=== PATIENT | female | born 1995 | race African-American/Black ===

== ENCOUNTER 2016-08-21 20:01 | Emergency (ER) | payer SELFPAY ==
[~2016-08-21] VITALS: Ht 165.1 cm; Wt 127.0 kg
[~2016-08-21 20:01] MED LIST: NORG1TAB38 PO
[2016-08-21 20:14] VITALS: BP 122/56
[2016-08-21 21:01] LABS: OBC FLU VALID
[2016-08-21] MEDS ORDERED: OSEL75CA PO (21:22)
--- NOTE | 2016-08-21 21:23 | PHYS DOC ---
Past Medical History Past Medical History: Anxiety, Asthma, Bipolar, Schizophrenia, Other Additional Past Medical Histor: panic attacks Past Surgical History: No Surgical History Alcohol Use: Occasionally Drug Use: None Adult General Chief Complaint Chief Complaint: FLU SYMPTOM HPI HPI Patient is a 21 year old female with history of anxiety asthma and schizophrenia who presents today with sore throat body aches subjective fever since yesterday. Patient denies any coughing. Review of Systems Review of Systems Constitutional: Subjective fevers and body aches Eyes: Denies change in visual acuity, redness, or eye pain [] HENT: sore throat [] Respiratory: See history of present illness Cardiovascular: No additional information not addressed in HPI [] GI: Denies abdominal pain, nausea, vomiting, bloody stools or diarrhea [] : Denies dysuria or hematuria [] Musculoskeletal: Denies back pain or joint pain [] Integument: Denies rash or skin lesions [] Neurologic: Denies headache, focal weakness or sensory changes [] Endocrine: Denies polyuria or polydipsia [] Allergies Allergies Allergies Coded Allergies Type Severity Reaction Last Updated Verified coconut oil Allergy Severe hives 02/01/14 Yes Physical Exam Physical Exam Constitutional: Well developed, well nourished, no acute distress, non-toxic appearance. [] HENT: Normocephalic, atraumatic, bilateral external ears normal, oropharynx moist, no oral exudates, nose normal. [] Eyes: PERRLA, EOMI, conjunctiva normal, no discharge. [] Neck: Normal range of motion, no tenderness, supple, no stridor. [] Cardiovascular:Heart rate regular rhythm, no murmur [] Lungs & Thorax: Bilateral breath sounds clear to auscultation [] Abdomen: Bowel sounds normal, soft, no tenderness, no masses, no pulsatile masses. [] Skin: Warm, dry, no erythema, no rash. [] Back: No tenderness, no CVA tenderness. [] Extremities: No tenderness, no cyanosis, no clubbing, ROM intact, no edema. [] Neurologic: Alert and oriented X 3, normal motor function, normal sensory function, no focal deficits noted. [] Psychologic: Affect normal, judgement normal, mood normal. [] Current Patient Data Vital Signs Vital Signs Date Time Temp Pulse Resp B/P Pulse Ox O2 Delivery O2 Flow Rate FiO2 08/21/16 20:14 100.4 91 22 100 Room Air 100.4 Lab Values Laboratory Tests Test 08/21/16 20:26 Influenza Type A Antigen Positive (NEGATIVE) Influenza Type B Antigen Negative (NEGATIVE) EKG EKG [] Radiology/Procedures Radiology/Procedures [] Course & Med Decision Making Course & Med Decision Making Pertinent Labs and Imaging studies reviewed. (See chart for details) Patient is in the ED with symptoms of an upper respiratory infection including sore throat and bodyaches subjective fever, negative rapid strep. Positive influenza A, discharged with Tamiflu. Negative influenza B. Tylenol /Motrin recommended for febrile pain. Follow-up with primary care doctor in one week. Provided return precautions and discharged in stable condition. Dragon Disclaimer Dragon Disclaimer This electronic medical record was generated, in whole or in part, using a voice recognition dictation system. Departure Departure Impression: Primary Impression: Upper respiratory infection Additional Impressions: Viral pharyngitis Influenza B Disposition: 01 HOME, SELF-CARE Condition: STABLE Referrals: NO PCP (PCP) Follow-up with your doctor in 1-2 weeks Patient Instructions: Upper Respiratory Infection, Adult Additional Instructions: You have influenza B. This is a virus. Take Tylenol every 4 hours and Motrin every 6 hours, we discharged you home with Tamiflu. Use it as prescribed. Follow -up with your own doctor in 1-2 weeks. Scripts Oseltamivir Phosphate (Tamiflu)75 Mg Capsule1 Cap PO BID #10 CAP Prov:ALISON LAMAS APRN 08/21/16 Problem Qualifiers Primary Impression: Upper respiratory infection URI type: unspecified URI Qualified Code: J06.9 - Acute upper respiratory infection, unspecified ADAMSALISON MARIA Aug 21, 2016 21:23
[2016-08-22 11:22] LABS: NEGATIVE OBC STREP NEG; POSITIVE OBC STREP POS
== END 2016-08-21 21:26 | disposition home or self-care (01) ==
LOC: ER 20:01
DX: J09.X2 Influenza due to identified novel influenza A virus with other respiratory manifestations (principal); J06.9 Acute upper respiratory infection, unspecified; J45.909 Unspecified asthma, uncomplicated; F31.9 Bipolar disorder, unspecified; F20.9 Schizophrenia, unspecified; Z91.048 Other nonmedicinal substance allergy status
CPT/HCPCS: 81025; 87070; 87804; 87880; 99284

== ENCOUNTER 2016-08-25 00:50 | Emergency (ER) | payer SELFPAY ==
[~2016-08-25] VITALS: Ht 165.1 cm; Wt 137.9 kg
[~2016-08-25 00:50] MED LIST changes: +OSEL75CA PO
[2016-08-25] MEDS ORDERED: IBUP100O7 PO (01:27)
--- NOTE | 2016-08-25 01:27 | PHYS DOC ---
Past Medical History Past Medical History: Anxiety, Asthma, Bipolar, Schizophrenia, Other Additional Past Medical Histor: panic attacks Past Surgical History: No Surgical History Alcohol Use: Occasionally Drug Use: None Adult General Chief Complaint Chief Complaint: DENTAL PROBLEM HPI HPI This is a 21-year-old female who states she was eating a chili dog and while eating it she states something sharp lodged in the roof of her mouth. She states she had to pull a piece of plastic out of the roof of her mouth. There was some mild bleeding that resolved. She now has some mild pain in the upper part of her mouth. She denies any shortness of breath. She denies any active bleeding. She is speaking in complete sentences and in no acute distress. Review of Systems Review of Systems Constitutional: Denies fever or chills [] Eyes: Denies change in visual acuity, redness, or eye pain [] HENT: Denies nasal congestion or sore throat [] Respiratory: Denies cough or shortness of breath [] Cardiovascular: No additional information not addressed in HPI [] GI: Denies abdominal pain, nausea, vomiting, bloody stools or diarrhea [] : Denies dysuria or hematuria [] Musculoskeletal: Denies back pain or joint pain [] Integument: Denies rash or skin lesions [] Neurologic: Denies headache, focal weakness or sensory changes [] Endocrine: Denies polyuria or polydipsia [] Current Medications Current Medications Current Medications Medications (Trade) Dose Ordered Sig/[facility] Start Time Stop Time Status Last Admin Dose Admin Ibuprofen (Motrin) 600 mg 1X ONCE 08/25/16 01:30 08/25/16 01:31 DC 08/25/16 01:31 600 MG Allergies Allergies Allergies Coded Allergies Type Severity Reaction Last Updated Verified coconut oil Allergy Severe hives 02/01/14 Yes Physical Exam Physical Exam Constitutional: Well developed, well nourished, no acute distress, non-toxic appearance. [] HENT: Normocephalic, atraumatic, bilateral external ears normal, oropharynx demonstrates a small abrasion but no other acute findings, there is no active bleeding seen, no oral exudates, nose normal. [] Eyes: PERRLA, EOMI, conjunctiva normal, no discharge. [] Neck: Normal range of motion, no tenderness, supple, no stridor. [] Cardiovascular:Heart rate regular rhythm, no murmur [] Lungs & Thorax: Bilateral breath sounds clear to auscultation [] Abdomen: Bowel sounds normal, soft, no tenderness, no masses, no pulsatile masses. [] Skin: Warm, dry, no erythema, no rash. [] Back: No tenderness, no CVA tenderness. [] Extremities: No tenderness, no cyanosis, no clubbing, ROM intact, no edema. [] Neurologic: Alert and oriented X 3, normal motor function, normal sensory function, no focal deficits noted. [] Psychologic: Affect normal, judgement normal, mood normal. [] Current Patient Data Vital Signs Vital Signs Date Time Temp Pulse Resp B/P Pulse Ox O2 Delivery O2 Flow Rate FiO2 08/25/16 01:04 98.4 84 20 99 Room Air 98.4 EKG EKG [] Radiology/Procedures Radiology/Procedures [] Course & Med Decision Making Course & Med Decision Making Pertinent Labs and Imaging studies reviewed. (See chart for details) This 20-year-old female who had a bridge into the upper roof of her mouth after she states a piece of plastic lodged itself briefly there has only what appears to be a superficial abrasion to the roof of her mouth. A dose of liquid Motrin was administered and she was told to have a soft liquid diet for the next several days and to follow closely with her primary care doctor. Prescription for liquid Motrin was also given. Dragon Disclaimer Dragon Disclaimer This electronic medical record was generated, in whole or in part, using a voice recognition dictation system. Departure Departure Impression: Primary Impression: Abrasion of oral cavity Disposition: HOME, SELF-CARE Admitting Physician: Other Condition: STABLE Referrals: UNKNOWN PCP NAME (PCP) Patient Instructions: Abrasion, [id number] Additional Instructions: Please follow up with your primary doctor for your abrasion to your mouth. Take liquid motrin for you pain and use a soft liquid diet for the next 2 days. Return to the ER if you develop any worsening of your symptoms. Scripts Ibuprofen 100 Mg/5 Ml Oral.[id number] Mg PO Q6HRS PRN PAIN 5 Days Prov:MARIZA KEYES DO 08/25/16 MARIZA KEYES DO Aug 25, 2016 01:27
[2016-08-25] MEDS ORDERED: IBUPROFEN 100 MG/5 ML ORAL.SUSP. PO ONE (01:30)
== END 2016-08-25 01:35 | disposition home or self-care (01) ==
LOC: ER 00:50
DX: S00.512A Abrasion of oral cavity, initial encounter (principal); F41.9 Anxiety disorder, unspecified; F20.9 Schizophrenia, unspecified; J45.909 Unspecified asthma, uncomplicated; F31.9 Bipolar disorder, unspecified; Z91.018 Allergy to other foods; W45.8XXA Other foreign body or object entering through skin, initial encounter; Y93.89 Activity, other specified; Y92.89 Other specified places as the place of occurrence of the external cause; Y99.8 Other external cause status
CPT/HCPCS: 99282

== ENCOUNTER 2017-01-24 01:38 | Emergency (ER) | payer MEDICARE ==
[~2017-01-24] VITALS: Ht 167.6 cm; Wt 137.9 kg
[~2017-01-24 01:38] MED LIST changes: +IBUP100O24 PO
[2017-01-24 01:44] VITALS: BP 138/88
[2017-01-24] MEDS ORDERED: AZIT250T PO (03:21)
[2017-01-24] MEDS ORDERED: CYCL10TA2 PO (03:21)
[2017-01-24] MEDS ORDERED: TRAM-48 PO (03:21)
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
== END 2017-01-24 03:35 | disposition home or self-care (01) ==
LOC: ER 01:38
DX: J06.9 Acute upper respiratory infection, unspecified (principal); J45.909 Unspecified asthma, uncomplicated; F20.9 Schizophrenia, unspecified; F31.9 Bipolar disorder, unspecified; E66.2 Morbid (severe) obesity with alveolar hypoventilation; Z68.42 Body mass index [BMI] 45.0-49.9, adult; Z88.8 Allergy status to other drugs, medicaments and biological substances
CPT/HCPCS: 99283

== ENCOUNTER 2017-03-29 09:39 | Emergency (ER) | payer SELFPAY ==
[~2017-03-29] VITALS: Ht 167.6 cm; Wt 127.0 kg
[~2017-03-29 09:39] MED LIST changes: +AZIT250T PO; +CYCL10TA2 PO; +TRAM-48 PO
[2017-03-29 10:30] LABS: BILIRUBIN,URINE NEGATIVE (NEG); GLUCOSE,URINE NEGATIVE (NEG); NEGATIVE OBC STREP NEG; NITRITE,URINE NEGATIVE (NEG); PH,URINE 6.5; POSITIVE OBC STREP POS; PROTEIN,URINE NEGATIVE (NEG-TRACE); UROBILINOGEN,URINE 0.2 mg/dL (0.2 mg/dL)
--- NOTE | 2017-03-29 10:34 | PHYS DOC ---
Past Medical History Past Medical History: Anxiety, Asthma, Bipolar, Schizophrenia, Other Additional Past Medical Histor: panic attacks, obesity Past Surgical History: No Surgical History Alcohol Use: Occasionally Drug Use: None Adult General Chief Complaint Chief Complaint: ABDOMINAL PAIN HPI HPI Patient is a 22 year old female with history of schizophrenia, bipolar, who presents today complaining of a sore throat that began yesterday. Patient is also complaining of a generalized mild abdominal pain intermittently since yesterday and none in the ED during exam. She states she vomited twice yesterday but has not vomited today. Patient states she does not think she is though she has not had a menstrual cycle for 6 months. Patient denies any fever. Denies any hematemesis. Denies any melena. Review of Systems Review of Systems Constitutional: Denies fever or chills [] Eyes: Denies change in visual acuity, redness, or eye pain [] HENT:sore throat. Denies nasal congestion Respiratory: Denies cough or shortness of breath [] Cardiovascular: No additional information not addressed in HPI [] GI: generalized abdominal pain, nausea, vomiting, denies bloody stools or diarrhea [] : Denies dysuria or hematuria [] Musculoskeletal: Denies back pain or joint pain [] Integument: Denies rash or skin lesions [] Neurologic: Denies headache, focal weakness or sensory changes [] Endocrine: Denies polyuria or polydipsia [] Allergies Allergies Allergies Coded Allergies Type Severity Reaction Last Updated Verified coconut oil Allergy Severe hives 02/01/14 Yes Physical Exam Physical Exam Constitutional: Well developed, well nourished, no acute distress, non-toxic appearance. [] HENT: Normocephalic, atraumatic, bilateral external ears normal, oropharynx moist, no oral exudates, nose normal. [] Eyes: PERRLA, EOMI, conjunctiva normal, no discharge. [] Neck: Normal range of motion, no tenderness, supple, no stridor. [] Cardiovascular:Heart rate regular rhythm, no murmur [] Lungs & Thorax: Bilateral breath sounds clear to auscultation [] Abdomen: Bowel sounds normal, soft, no tenderness, no masses, no pulsatile masses. [] Skin: Warm, dry, no erythema, no rash. [] Back: No tenderness, no CVA tenderness. [] Extremities: No tenderness, no cyanosis, no clubbing, ROM intact, no edema. [] Neurologic: Alert and oriented X 3, normal motor function, normal sensory function, no focal deficits noted. [] Psychologic: Affect normal, judgement normal, mood normal. [] Current Patient Data Vital Signs Vital Signs Date Time Temp Pulse Resp B/P (MAP) Pulse Ox O2 Delivery O2 Flow Rate FiO2 03/29/17 09:53 98.2 88 18 130/75 (93) 98 Room Air 98.2 Lab Values Laboratory Tests Test 03/29/17 10:13 03/29/17 10:15 POC Urine HCG, Qualitative Hcg negative (Negative) Urine Collection Type Unknown Urine Color Yellow Urine Clarity Clear Urine pH 6.5 Urine Specific Greer 1.015 Urine Protein Negative mg/dL (NEG-TRACE) Urine Glucose (UA) Negative mg/dL (NEG) Urine Ketones (Stick) Negative mg/dL (NEG) Urine Blood Small (NEG) Urine Nitrite Negative (NEG) Urine Bilirubin Negative (NEG) Urine Urobilinogen Dipstick 0.2 mg/dL (0.2 mg/dL) Urine Leukocyte Esterase Negative (NEG) Urine RBC Occ /HPF (0-2) Urine WBC 1-4 /HPF (0-4) Urine Squamous Epithelial Cells Mod /LPF Urine Bacteria Few /HPF (0-FEW) Urine Mucus Slight /LPF Group A Streptococcus Rapid Negative (NEGATIVE) EKG EKG [] Radiology/Procedures Radiology/Procedures [] Course & Med Decision Making Course & Med Decision Making Pertinent Labs and Imaging studies reviewed. (See chart for details) This is a 22-year-old female patient presenting to the ED today with generalized abdominal pain that occurred yesterday intermittently. Patient also had 2 episodes of vomiting yesterday but none today. She is also complaining of a sore throat. Negative urine hCG. Urine analysis is negative for infection, negative rapid strep. Symptoms are likely viral. Discharged promethazine and ibuprofen. Tylenol / Motrin for pain or fever. Follow-up with primary care doctor in 1-2 weeks. Dragon Disclaimer Dragon Disclaimer This electronic medical record was generated, in whole or in part, using a voice recognition dictation system. Departure Departure Impression: Primary Impression: Vomiting Additional Impressions: Viral pharyngitis Abdominal pain Disposition: HOME, SELF-CARE Condition: STABLE Referrals: NO PCP (PCP) follow up with the health department for control as soon as you can Patient Instructions: Abdominal Migraine, Nausea and Vomiting, [id number], Viral and Bacterial Pharyngitis Additional Instructions: You were seen with symptoms consistent of a viral illness. Use saltwater gargles for the sore throat. Take ibuprofen as needed for pain. Take the promethazine as needed for nausea vomiting. Scripts Ibuprofen (IBUPROFEN) 800 Mg Tablet 800 MG PO PRN Q6HRS Y for INFLAMMATION, #30 TAB Prov: ALISON LAMAS APRN 03/29/17 Promethazine Hcl (PROMETHAZINE HCL) 25 Mg Tablet 1 TAB PO PRN Q6HRS, #20 TAB Prov: ALISON LAMAS APRN 03/29/17 Problem Qualifiers Primary Impression: Vomiting Vomiting type: unspecified Vomiting Intractability: non-intractable Nausea presence: without nausea Qualified Codes: R11.11 - Vomiting without nausea Additional Impressions: Abdominal pain Abdominal location: generalized Qualified Codes: R10.84 - Generalized abdominal pain ALISON LAMAS APRN Mar 29, 2017 10:34
[2017-03-29 10:40] LABS: SQUAMOUS EPITHELIAL CELL,UR MOD /LPF
[2017-03-29 10:41] LABS: BACTERIA,URINE FEW /HPF (0-FEW); RBC,URINE OCC /HPF (0-2)
[2017-03-29 11:05] VITALS: BP 129/70
[2017-03-29] MEDS ORDERED: IBUP-1060 PO (11:05)
[2017-03-29] MEDS ORDERED: PROM25TA10 PO (11:05)
== END 2017-03-29 11:12 | disposition home or self-care (01) ==
LOC: ER 09:39
DX: R11.2 Nausea with vomiting, unspecified (principal); J02.8 Acute pharyngitis due to other specified organisms; B97.89 Other viral agents as the cause of diseases classified elsewhere; R10.84 Generalized abdominal pain; J45.909 Unspecified asthma, uncomplicated; F20.9 Schizophrenia, unspecified; F41.0 Panic disorder [episodic paroxysmal anxiety]; F31.9 Bipolar disorder, unspecified; E66.9 Obesity, unspecified; Z68.42 Body mass index [BMI] 45.0-49.9, adult; Z91.048 Other nonmedicinal substance allergy status
CPT/HCPCS: 81001; 81025; 87070; 87880; 99284

== ENCOUNTER 2017-09-19 13:29 | Emergency (ER) | payer MEDICARE ==
[2017-09-19 14:10] LABS: URINE HCG POC HCG NEGATIVE (Negative)
[2017-09-19 14:41] LABS: BILIRUBIN,URINE NEGATIVE (NEG); CLARITY,URINE CLEAR; COLOR,URINE YELLOW; GLUCOSE,URINE NEGATIVE (NEG); NITRITE,URINE NEGATIVE (NEG); PH,URINE 7.5; PROTEIN,URINE NEGATIVE (NEG-TRACE); UROBILINOGEN,URINE 0.2 mg/dL (0.2 mg/dL)
[2017-09-19 14:57] LABS: BACTERIA,URINE 0 /HPF (0-FEW); RBC,URINE 0 /HPF (0-2); SQUAMOUS EPITHELIAL CELL,UR OCC /LPF; WBC,URINE 0 /HPF (0-4)
== END 2017-09-19 15:42 | disposition home or self-care (01) ==
LOC: ER 13:29
DX: M54.5 Low back pain (principal); F20.9 Schizophrenia, unspecified; F31.9 Bipolar disorder, unspecified; Z88.8 Allergy status to other drugs, medicaments and biological substances; V49.9XXA Car occupant (driver) (passenger) injured in unspecified traffic accident, initial encounter; Y93.89 Activity, other specified; Y99.8 Other external cause status; Y92.488 Other paved roadways as the place of occurrence of the external cause
CPT/HCPCS: 72100; 81001; 81025; 99285-25

== ENCOUNTER 2018-06-18 13:33 | Emergency (ER) | payer MEDICARE ==
[~2018-06-18] VITALS: Ht 165.1 cm; Wt 104.8 kg
[~2018-06-18 13:33] MED LIST changes: +CYCL5TAB PO; +IBUP-1060 PO; -IBUP100O24 PO; +IBUP100O25 PO; +PROM25TA10 PO
[2018-06-18 14:45] VITALS: BP 142/85
--- NOTE | 2018-06-18 15:31 | PHYS DOC ---
Past Medical History Past Medical History: Anxiety, Asthma, Bipolar, Schizophrenia, Other Additional Past Medical Histor: panic attacks, obesity Past Surgical History: No Surgical History Alcohol Use: Occasionally Drug Use: None Adult General Chief Complaint Chief Complaint: EARACHE/EAR PAIN HPI HPI Patient is a 23 female that complains of a clogged right ear. The patient states that she feels like she is not hearing out of that ear well. She has had some intermittent bouts of pain in the ear as well. She denies fever, runny nose or sore throat. Review of Systems Review of Systems Constitutional: Denies fever or chills [] Eyes: Denies change in visual acuity, redness, or eye pain [] HENT: See history of present illness Respiratory: Denies cough or shortness of breath [] Cardiovascular: No additional information not addressed in HPI [] Neurologic: Denies headache, focal weakness or sensory changes [] Endocrine: Denies polyuria or polydipsia [] All other systems were reviewed and found to be within normal limits, except as documented in this note. Allergies Allergies Allergies Coded Allergies Type Severity Reaction Last Updated Verified coconut oil Allergy Severe hives 02/01/14 Yes Physical Exam Physical Exam Constitutional: Well developed, well nourished, no acute distress, non-toxic appearance. [] HEENT: The right ear canal is completely occluded with cerumen, the left canal and tympanic membrane are normal Cardiovascular:Heart rate regular rhythm, no murmur [] Lungs & Thorax: Bilateral breath sounds clear to auscultation [] Skin: Warm, dry, no erythema, no rash. [] Back: No tenderness, no CVA tenderness. [] Extremities: No tenderness, no cyanosis, no clubbing, ROM intact, no edema. [] Neurologic: Alert and oriented X 3, normal motor function, normal sensory function, no focal deficits noted. [] Psychologic: Affect normal, judgement normal, mood normal. [] Current Patient Data Vital Signs Vital Signs Date Time Temp Pulse Resp B/P (MAP) Pulse Ox O2 Delivery O2 Flow Rate FiO2 06/18/18 14:45 98.0 85 16 142/85 (104) 100 Room Air 98.0 EKG EKG [] Radiology/Procedures Radiology/Procedures [] Course & Med Decision Making Course & Med Decision Making Pertinent Labs and Imaging studies reviewed. (See chart for details) Cerumen was not able to be removed via flushing. A curette was used to successfully remove the plug of cerumen. The tympanic membrane was normal post- cerumen removal. The patient states that she is pain free and can hear perfectly. Staff Physician Addendum: I was working in the ER during the course of this patient's visit. I was available for consultation as needed, but I was not directly involved in the care of this patient. Dragon Disclaimer Dragon Disclaimer This electronic medical record was generated, in whole or in part, using a voice recognition dictation system. Departure Departure Impression: Primary Impression: Cerumen impaction Disposition: 01 HOME, SELF-CARE Condition: STABLE Referrals: UNKNOWN PCP NAME (PCP) Patient Instructions: Cerumen Impaction Additional Instructions: Follow-up with your primary care provider as needed. If you develop ear pain return to the emergency department. MELISSA DASILVA APRN Jun 18, 2018 15:31 MELINA DENISE MD Jun 19, 2018 06:46
== END 2018-06-18 15:55 | disposition home or self-care (01) ==
LOC: ER 13:33
DX: H61.21 Impacted cerumen, right ear (principal); J45.909 Unspecified asthma, uncomplicated; Z91.048 Other nonmedicinal substance allergy status
CPT/HCPCS: 69210; 99284

== ENCOUNTER 2018-06-29 14:13 | Emergency (ER) | payer MEDICARE ==
[~2018-06-29] VITALS: Ht 167.6 cm; Wt 109.8 kg
[2018-06-29 14:34] VITALS: BP 140/64
--- NOTE | 2018-06-29 15:12 | PHYS DOC ---
Past Medical History Past Medical History: Anxiety, Asthma, Bipolar, Schizophrenia, Other Additional Past Medical Histor: panic attacks, obesity Past Surgical History: No Surgical History Alcohol Use: Occasionally Drug Use: None Adult General Chief Complaint Chief Complaint: SORE THROAT HPI HPI Patient is a 23 year old female with history of anxiety, bipolar, schizophrenia , asthma, who presents today complaining of sore throat cough and nasal congestion for one day. Patient denies any fever. Review of Systems Review of Systems Constitutional: Denies fever or chills [] Eyes: Denies change in visual acuity, redness, or eye pain [] HENT: Reports nasal congestion, denies sore throat [] Respiratory: Reports cough, denies shortness of breath [] Cardiovascular: No additional information not addressed in HPI [] GI: Denies abdominal pain, nausea, vomiting, bloody stools or diarrhea [] : Denies dysuria or hematuria [] Musculoskeletal: Denies back pain or joint pain [] Integument: Denies rash or skin lesions [] Neurologic: Denies headache, focal weakness or sensory changes [] All other systems were reviewed and found to be within normal limits, except as documented in this note. Allergies Allergies Allergies Coded Allergies Type Severity Reaction Last Updated Verified coconut oil Allergy Severe hives 02/01/14 Yes Physical Exam Physical Exam Constitutional: Well developed, well nourished, no acute distress, non-toxic appearance. [] HENT: Normocephalic, atraumatic, bilateral external ears normal, oropharynx moist, no oral exudates, nose normal. [] Eyes: PERRLA, EOMI, conjunctiva normal, no discharge. [] Neck: Normal range of motion, no tenderness, supple, no stridor. [] Cardiovascular:Heart rate regular rhythm, no murmur [] Lungs & Thorax: Bilateral breath sounds clear to auscultation [] Abdomen: Bowel sounds normal, soft, no tenderness, no masses, no pulsatile masses. [] Skin: Warm, dry, no erythema, no rash. [] Back: No tenderness, no CVA tenderness. [] Extremities: No tenderness, no cyanosis, no clubbing, ROM intact, no edema. [] Neurologic: Alert and oriented X 3, normal motor function, normal sensory function, no focal deficits noted. [] Psychologic: Affect normal, judgement normal, mood normal. [] Current Patient Data Vital Signs Vital Signs Date Time Temp Pulse Resp B/P (MAP) Pulse Ox O2 Delivery O2 Flow Rate FiO2 06/29/18 14:34 99.0 91 16 140/64 (89) 98 Room Air 99.0 Lab Values Laboratory Tests Test 06/29/18 14:33 06/29/18 14:40 Influenza Type A Antigen Negative (NEGATIVE) Influenza Type B Antigen Negative (NEGATIVE) Group A Streptococcus Rapid Negative (NEGATIVE) EKG EKG [] Radiology/Procedures Radiology/Procedures [] Course & Med Decision Making Course & Med Decision Making Pertinent Labs and Imaging studies reviewed. (See chart for details) This is a 23-year-old female patient presenting to the ED today with cough, nasal congestion and a sore throat for 1 day. Negative rapid strep, negative influenza A or B. Patient's symptoms are likely viral. Discharged with instructions to use [id number] remedies including Mucinex D. Tylenol or Motrin for pain or fever. Instructed to push fluids and maintain good hand hygiene. Staff Physician Addendum: I was working in the ER during the course of this patient's visit. I was available for consultation as needed, but I was not directly involved in the care of this patient. Dragon Disclaimer Dragon Disclaimer This electronic medical record was generated, in whole or in part, using a voice recognition dictation system. Departure Departure Impression: Primary Impression: Upper respiratory infection Additional Impressions: Cough Acute viral pharyngitis Disposition: HOME, SELF-CARE Condition: STABLE Referrals: UNKNOWN PCP NAME (PCP) follow up with your doctor in 1-2 weeks Patient Instructions: Cough, Adult, [id number], Upper Respiratory Infection, Adult, [id number], Viral Pharyngitis Additional Instructions: You were evaluated in the emergency room for symptoms consistent of viral illness. Take Tylenol or Motrin as needed for pain. Take Mucinex D for the cough and congestion. Push fluids. Maintain good hand hygiene. Follow-up with your doctor in 1-2 weeks. Problem Qualifiers Primary Impression: Upper respiratory infection URI type: unspecified URI Qualified Codes: J06.9 - Acute upper respiratory infection, unspecified ALISON LAMAS APRN Jun 29, 2018 15:12 MELINA DENISE MD Jun 29, 2018 20:35
[2018-06-29 15:18] LABS: INFLUENZA A PATIENT NEGATIVE (NEGATIVE); INFLUENZA B PATIENT NEGATIVE (NEGATIVE)
== END 2018-06-29 15:34 | disposition home or self-care (01) ==
LOC: ER 14:13
DX: J02.8 Acute pharyngitis due to other specified organisms (principal); B97.89 Other viral agents as the cause of diseases classified elsewhere; F41.9 Anxiety disorder, unspecified; J45.909 Unspecified asthma, uncomplicated; F31.9 Bipolar disorder, unspecified; F20.9 Schizophrenia, unspecified; E66.9 Obesity, unspecified; Z68.39 Body mass index [BMI] 39.0-39.9, adult; Z91.018 Allergy to other foods
CPT/HCPCS: 87070; 87804; 87880; 99283

== ENCOUNTER 2018-08-28 20:07 | Emergency (ER) | payer MEDICARE, OTHER ==
[~2018-08-28] VITALS: Ht 167.6 cm; Wt 109.8 kg
[2018-08-28 20:55] VITALS: BP 119/51
[2018-08-28] MEDS ORDERED: ONDA4TAB7 PO (21:57)
[2018-08-28 22:03] LABS: BILIRUBIN,URINE NEGATIVE (NEG); CLARITY,URINE CLEAR; COLOR,URINE YELLOW; NITRITE,URINE NEGATIVE (NEG); PH,URINE 6.5; PROTEIN,URINE NEGATIVE (NEG-TRACE); UROBILINOGEN,URINE 0.2 mg/dL (0.2 mg/dL)
[2018-08-28 22:11] LABS: BASO % 1 % (0-3); EOS # 0.3 x10^3/uL (0.0-0.7); EOS % 4 % (0-3); HEMATOCRIT 38.8 % (36.0-47.0); HEMOGLOBIN 12.5 g/dL (12.0-15.5); LYMPH # 3.3 x10^3/uL (1.0-4.8); LYMPH % 48 % (24-48); MEAN CORPUSCULAR HEMOGLOBIN 29 pg (25-35); MEAN CORPUSCULAR HGB CONC 32 g/dL (31-37); MEAN CORPUSCULAR VOLUME 89 fL (79-100); MONO # 0.4 x10^3/uL (0.0-1.1); MONO % 7 % (0-9); NEUT # 2.7 x10^3uL (1.8-7.7); NEUT % 41 % (31-73); PLATELET COUNT 291 x10^3/uL (140-400); RED BLOOD COUNT 4.34 x10^6/uL (3.50-5.40); RED CELL DISTRIBUTION WIDTH 14.4 % (11.5-14.5); WHITE BLOOD COUNT 6.8 x10^3/uL (4.0-11.0)
[2018-08-28 22:17] LABS: GFR 81.7
[2018-08-28 22:19] LABS: BACTERIA,URINE FEW /HPF (0-FEW); RBC,URINE OCC /HPF (0-2); SQUAMOUS EPITHELIAL CELL,UR OCC /LPF
[2018-08-28 22:25] LABS: ALBUMIN 3.6 g/dL (3.4-5.0); ALBUMIN/GLOBULIN RATIO 0.9 (1.0-1.7); TOTAL BILIRUBIN 0.2 mg/dL (0.2-1.0); TOTAL PROTEIN 7.4 g/dL (6.4-8.2)
[2018-08-28] MEDS ORDERED: ONDANSETRON PF 4 MG/2 ML VIAL. IV ONE (22:30)
[2018-08-28] MEDS ORDERED: IV NORMAL SALINE 1000ML BAG 1,000 ML IV ONE (22:30)
--- NOTE | 2018-08-29 03:19 | PHYS DOC ---
Past Medical History Past Medical History: Anxiety, Asthma, Bipolar, Schizophrenia, Other Additional Past Medical Histor: panic attacks, obesity Past Surgical History: No Surgical History Alcohol Use: Occasionally Drug Use: None Adult General Chief Complaint Chief Complaint: GI PROBLEM HPI HPI Patient is a 23 yo female who presents with complaint of one day of nausea, vomiting, and several episodes of diarrhea. She reports symptoms began Tuesday morning and she has had several episodes of vomiting and diarrhea, which prompted her to present to ED. She reports her 6th episode of vomiting had some light pink color to it, but that she has not had any additional episodes of bloody emesis. She denies blood in her stool. She denies pain or burning w/ urination. She does admit to episodic abdominal cramping in both lower quadrants. She denies recent international travel, trying new foods or restaurants, or sick contacts. She reports she has been afebrile at home. Review of Systems Review of Systems Constitutional: Denies fever or chills [] HENT: Denies nasal congestion or sore throat [] Respiratory: Denies cough or shortness of breath [] Cardiovascular: Denies chest pain. Denies palpations GI: Admits abdominal cramping. Admits nausea, vomiting, and diarrhea. Denies blood in stool. : Denies dysuria or hematuria [] Musculoskeletal: Denies back pain or joint pain [] Integument: Denies rash or skin lesions [] Neurologic: Denies headache, focal weakness or sensory changes [] All other systems were reviewed and found to be within normal limits, except as documented in this note. Current Medications Current Medications Current Medications Medications (Trade) Dose Ordered Sig/Bere Start Time Stop Time Status Last Admin Dose Admin Ondansetron HCl (Zofran) 4 mg 1X ONCE 08/28/18 22:30 08/28/18 22:31 DC 08/28/18 22:09 4 MG Sodium Chloride 1,000 ml @ 1,000 mls/hr 1X ONCE 08/28/18 22:30 08/28/18 22:57 DC 08/28/18 22:10 1,000 MLS/HR Allergies Allergies Allergies Coded Allergies Type Severity Reaction Last Updated Verified coconut oil Allergy Severe hives 02/01/14 Yes Physical Exam Physical Exam Constitutional: Well developed, well nourished, no acute distress, non-toxic appearance. [] HENT: Normocephalic, atraumatic, Cardiovascular:Heart rate regular rhythm, no murmur [] Lungs & Thorax: Bilateral breath sounds clear to auscultation [] Abdomen: Bowel sounds normal, soft, mildly tender to palpation throughout all quadrants no focal findings, pt is distractible No masses, lesions, or discolorations appreciated. Skin: Warm, dry, no erythema, no rash. [] Extremities: No tenderness, no cyanosis, no clubbing, ROM intact, no edema. [] Neurologic: Alert and oriented X 3, normal motor function, normal sensory function, no focal deficits noted. [] Psychologic: Affect normal, judgement normal, mood normal. [] Current Patient Data Vital Signs Vital Signs Date Time Temp Pulse Resp B/P (MAP) Pulse Ox O2 Delivery O2 Flow Rate FiO2 08/28/18 20:55 98.7 75 18 119/51 (73) 96 Room Air 98.7 Lab Values Laboratory Tests Test 08/28/18 20:12 08/28/18 20:55 08/28/18 20:58 Urine Color Yellow Urine Clarity Clear Urine pH 6.5 Urine Specific [place] 1.015 Urine Protein Negative mg/dL (NEG-TRACE) Urine Glucose (UA) Negative mg/dL (NEG) Urine Ketones (Stick) Negative mg/dL (NEG) Urine Blood Trace (NEG) Urine Nitrite Negative (NEG) Urine Bilirubin Negative (NEG) Urine Urobilinogen Dipstick 0.2 mg/dL (0.2 mg/dL) Urine Leukocyte Esterase Negative (NEG) Urine RBC Occ /HPF (0-2) Urine WBC 1-4 /HPF (0-4) Urine Squamous Epithelial Cells Occ /LPF Urine Bacteria Few /HPF (0-FEW) White Blood Count 6.8 x10^3/uL (4.0-11.0) Red Blood Count 4.34 x10^6/uL (3.50-5.40) Hemoglobin 12.5 g/dL (12.0-15.5) Hematocrit 38.8 % (36.0-47.0) Mean Corpuscular Volume 89 fL (79-100) Mean Corpuscular Hemoglobin 29 pg (25-35) Mean Corpuscular Hemoglobin Concent 32 g/dL (31-37) Red Cell Distribution Width 14.4 % (11.5-14.5) Platelet Count 291 x10^3/uL (140-400) Neutrophils (%) (Auto) 41 % (31-73) Lymphocytes (%) (Auto) 48 % (24-48) Monocytes (%) (Auto) 7 % (0-9) Eosinophils (%) (Auto) 4 % (0-3) H Basophils (%) (Auto) 1 % (0-3) Neutrophils # (Auto) 2.7 x10^3uL (1.8-7.7) Lymphocytes # (Auto) 3.3 x10^3/uL (1.0-4.8) Monocytes # (Auto) 0.4 x10^3/uL (0.0-1.1) Eosinophils # (Auto) 0.3 x10^3/uL (0.0-0.7) Basophils # (Auto) 0.0 x10^3/uL (0.0-0.2) Sodium Level 142 mmol/L (136-145) Potassium Level 4.0 mmol/L (3.5-5.1) Chloride Level 106 mmol/L (98-107) Carbon Dioxide Level 25 mmol/L (21-32) Anion Gap 11 (6-14) Blood Urea Nitrogen 9 mg/dL (7-20) Creatinine 1.0 mg/dL (0.6-1.0) Estimated GFR (Cockcroft-Gault) 81.7 BUN/Creatinine Ratio 9 (6-20) Glucose Level 118 mg/dL (70-99) H Calcium Level 9.0 mg/dL (8.5-10.1) Total Bilirubin 0.2 mg/dL (0.2-1.0) Aspartate Amino Transferase (AST) 22 U/L (15-37) Alanine Aminotransferase (ALT) 29 U/L (14-59) Alkaline Phosphatase 80 U/L (46-116) Total Protein 7.4 g/dL (6.4-8.2) Albumin 3.6 g/dL (3.4-5.0) Albumin/Globulin Ratio 0.9 (1.0-1.7) L POC Urine HCG, Qualitative Hcg negative (Negative) Laboratory Tests 08/28/18 20:55 Laboratory Tests 08/28/18 20:55 EKG EKG [] Radiology/Procedures Radiology/Procedures [] Course & Med Decision Making Course & Med Decision Making Patient is healthy 23 yo female who presents with one day of nausea, vomiting, diarrhea. She reports she has had several episodes of nausea and diarrhea throughout the day, and began to feel weak during the day. Physical exam significant for diffuse moderate abdominal tenderness, the remainder of physical exam unremarkable. CBC, CMP, UA unremarkable. Patient treated with fluids, zofran. Suspect that d/t the acuity of symptoms and normal vitals patient's symptoms likely d/t viral gastritis. Discussed with patient the plan to dc home with zofran for nausea and to remain hydrate with PO fluid intake and to return if symptoms do not improve. Patient voiced understanding and agreement with the plan. Dragon Disclaimer Dragon Disclaimer This electronic medical record was generated, in whole or in part, using a voice recognition dictation system. Departure Departure Impression: Primary Impression: Vomiting Disposition: 01 HOME, SELF-CARE Condition: STABLE Referrals: UNKNOWN PCP NAME (PCP) Patient Instructions: Diarrhea, Gxav-if-Mowm Scripts Ondansetron Hcl (ZOFRAN) 4 Mg Tablet 4 MG PO PRN TID PRN for NAUSEA/VOMITING, #8 nausea/vomiting Prov: MELINA DENISE MD 08/28/18 MELINA DENISE MD Aug 29, 2018 03:19
== END 2018-08-28 22:57 | disposition home or self-care (01) ==
LOC: ER 20:07
DX: R11.2 Nausea with vomiting, unspecified (principal); R19.7 Diarrhea, unspecified; R10.31 Right lower quadrant pain; R10.32 Left lower quadrant pain; J45.909 Unspecified asthma, uncomplicated; F31.9 Bipolar disorder, unspecified; F41.9 Anxiety disorder, unspecified; F20.9 Schizophrenia, unspecified; E66.9 Obesity, unspecified; Z68.39 Body mass index [BMI] 39.0-39.9, adult; Z91.018 Allergy to other foods
CPT/HCPCS: 36415; 80053; 81001; 81025; 85025; 96361; 96374; 99283; J2405; J7030